=== PATIENT | female | born 1990 | race Asian ===

== ENCOUNTER 2021-05-30 13:19 | Emergency (ER) | payer BC ==
[2021-05-30 14:51] VITALS: BP 135/82; PULSE 92; RESP 18; TEMP 98.4
--- NOTE | 2021-05-30 16:08 | ED ---
Recheck HPI - General Source: patient, RN notes reviewed Mode of arrival: ambulatory Limitations: no limitations <Robin Dennis - Last Filed: 05/30/21 16:11> <Dianne Jaramillo - Last Filed: 06/02/21 23:00> - General Chief Complaint: Recheck/Abnormal Lab/Rx Stated Complaint: covid testing for travel Time Seen by Provider: 05/30/21 14:22 - History of Present Illness Initial Comments: Patient is a 30-year-old female that presents to the emergency department Covid test travel. She is a symptom medic and afebrile. She is otherwise well- appearing. She denied any chest pain first breath headache nausea vomiting diarrhea constipation fever fatigue chills (Robin Dennis) - Related Data Allergies Allergy/AdvReac Type Severity Reaction Status Date / Time No Known Allergies Allergy Verified 05/30/21 14:51 Review of Systems ROS Other: All systems not noted in ROS Statement are negative. <Robin Dennis - Last Filed: 05/30/21 16:11> ROS Other: All systems not noted in ROS Statement are negative. <Dianne Jaramillo - Last Filed: 06/02/21 23:00> ROS Statement: Those systems with pertinent positive or pertinent negative responses have been documented in the HPI. Past Medical History Past Medical History: No Reported History History of Any Multi-Drug Resistant Organisms: None Reported Additional Past Surgical History / Comment(s): lower back sx, herniated disc Past Psychological History: No Psychological Hx Reported Smoking Status: Never smoker Past Alcohol Use History: None Reported Past Drug Use History: None Reported <Robin Dennis - Last Filed: 05/30/21 16:11> General Exam Limitations: no limitations General appearance: alert, in no apparent distress Head exam: Present: atraumatic, normocephalic, normal inspection Eye exam: Present: normal appearance, PERRL, EOMI. Absent: scleral icterus, conjunctival injection, periorbital swelling ENT exam: Present: normal exam, mucous membranes moist Neck exam: Present: normal inspection Respiratory exam: Present: normal lung sounds bilaterally. Absent: respiratory distress, wheezes, rales, rhonchi, stridor Cardiovascular Exam: Present: regular rate, normal rhythm, normal heart sounds. Absent: systolic murmur, diastolic murmur, rubs, gallop, clicks <Robin Dennis - Last Filed: 05/30/21 16:11> Course Vital Signs 05/30/21 14:48 Temperature 98.4 F Pulse Rate 92 Respiratory 18 Rate Blood Pressure 135/82 O2 Sat by Pulse 98 Oximetry Medical Decision Making <Robin Dennis - Last Filed: 05/30/21 16:11> <Dianne Jaramillo - Last Filed: 06/02/21 23:00> - Medical Decision Making 30-year-old female Covid test to travel. Covid test ordered and is negative. Patient could discharge home. Case discussed with Dr. Jaramillo. (Robin Dennis) I was available for consultation in the emergency department. The history and physical exam were done by the midlevel provider. I was consulted for this patients care. I reviewed the case with the midlevel provider and based on their presentation of the patient, I agree with the assessment, medical decision making and plan of care as documented. Chart was dictated using [employer] dictation software. Attempts were made to correct any dictation errors however some typographical errors may persist. Patient was seen during a national state of emergency due to the Covid-19 pandemic. (Dianne Jaramillo) - Lab Data Lab Results 05/30/21 Range/Units 14:51 Coronavirus (PCR) Not Detected (Not Detectd) Disposition Is patient prescribed a controlled substance at d/c from ED?: No Time of Disposition: 16:08 <Robin Dennis - Last Filed: 05/30/21 16:11> <Dianne Jaramillo - Last Filed: 06/02/21 23:00> Clinical Impression: Encounter for screening for COVID-19 Disposition: HOME SELF-CARE Condition: Stable Additional Instructions: Please return to the Emergency Department if symptoms worsen or any other concerns. Referrals: Nonstaff,Physician [Primary Care Provider] - 1-2 days
== END 2021-05-30 16:31 | disposition home or self-care (01) ==
LOC: EC 13:19
DX: Z20.822 Contact with and (suspected) exposure to COVID-19 (principal)
CPT/HCPCS: 87635; 99282